=== PATIENT | male | born 1980 | race Hispanic/Latino ===

== ENCOUNTER 2024-09-03 | Emergency (ER) | payer SELFPAY ==
[2024-09-03 00:08] VITALS: BP 137/106
[2024-09-03 01:58] VITALS: BP 120/88
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
== END 2024-09-03 02:46 | disposition home or self-care (01) ==
LOC: EMR
PROVIDERS: EMERGENCY PHYSICIAN Student in an Organized Health Care Education/Training Program; FAMILY PHYSICIAN Family Medicine Geriatric Medicine
DX: F32.A Depression, unspecified (principal); F41.9 Anxiety disorder, unspecified
CPT/HCPCS: 99282